=== PATIENT | female | born 1945 | race Caucasian/White ===

== ENCOUNTER 2025-01-29 13:05 | Emergency (ER) | payer MEDICARE, OTHER, SELFPAY ==
[2025-01-29] VITALS (24 sets, daily range): BP systolic 89–115; BP diastolic 42–74; PULSE 63–83; TEMP 37.2; O2SAT 98–100; BMI 20.5
--- NOTE | 2025-01-29 13:17 | ECG_ITS ---
[facility] Test Date: 2025-01-29 Pat Name: KAROLYN RAZA Department: Room: - Gender: Female Patient Transport Officer: : 1945 Requested By: [id number] Order Number: [id number] Reading MD: JACOB ESQUEDA M.D. Measurements Intervals [place] Rate: 64 P: 70 NM: 172 QRS: 25 QRSD: 88 T: -63 QT: 400 QTc: 409 Interpretive Statements 1100 Sinus rhythm 4564 Twave abnormality, possible lateral ischemia 4664 Twave abnormality, possible inferior ischemia 9150 abnormal ECG No previous ECG available for comparison Electronically Signed On 01-29-2025 17:51:02 EDT by JACOB ESQUEDA M.D.
[2025-01-29 13:40] LABS: Hematocrit 33.2 % (36.0-48.0); Hemoglobin 10.9 g/dL (12.0-16.0); Mean Corpuscular HGB Conc 32.8 g/dL (29.9-35.2); Mean Corpuscular Hemoglobin 28.7 pg (26.7-34.0); Mean Corpuscular Volume 87.4 fL (81.0-99.0); Mean Platelet Volume 10.4 fL (9.5-13.5); Platelet Count 135 10^3/uL (150-450); Red Cell Distribution Width 13.7 % (11.0-15.0); White Blood Count 4.2 10^3/uL (4.0-11.0)
[2025-01-29 13:59] LABS: Anion Gap 15.7; BUN Creatinine Ratio 17.3; Chloride 102 mmol/L (98-107); Estimated GFR (African America >60 (>=60 mL/min/1.73m^2); Estimated GFR (Non-African Ame 55 (>=60 mL/min/1.73m^2); Glucose 118 mg/dL (74-106); Potassium 3.7 mmol/L (3.5-5.1); Sodium 137 mmol/L (136-145)
[2025-01-29 14:00] LABS: Alanine Aminotransferase 17 U/L (14-59); Albumin Globulin Ratio 0.9; Albumin Level 3.1 g/dL (3.4-5.0); Alkaline Phosphatase 47 U/L (46-116); Aspartate Amino Transferase 29 U/L (15-37); Bilirubin Total 0.3 mg/dL (0.2-1.0); Calcium 8.4 mg/dL (8.5-10.1); Globulin 3.6 g/dL; Total Protein 6.7 g/dL (6.4-8.2)
[2025-01-29 14:01] LABS: Magnesium 1.9 mg/dL (1.8-2.4)
[2025-01-29 14:03] LABS: Lymphocytes Absolute Manual 0.42 10^3/uL (1.20-3.80); Monocytes Absolute Manual 0.29 10^3/uL (0.30-0.80); Segmented Neut Absolute Manual 3.48 10^3/uL (1.4-6.5)
[2025-01-29] MEDS: 0.9 % SODIUM CHLORIDE 1,000 ML 1000 ML IV (14:11)
[2025-01-29 15:03] LABS: Lactate/Lactic Acid 1.8 mmol/L (0.4-2.0)
[2025-01-29 15:15] LABS: Troponin I High Sensitivity 7.5 pg/mL (4.0-51.3)
--- NOTE | 2025-01-29 15:55 | ED.GENADUL1 ---
HPI HPI - General Adult General Chief complaint: Weakness Stated complaint: LOW BLOOD PRESSURE Time Seen by Provider: 01/29/25 13:17 Source: patient Mode of arrival: ambulance History of Present Illness HPI narrative: The patient is a 79-year-old female is coming to us by the EMS after she was having a bowel movement today and she feels like she is going to pass out, the patient was found to be hypotensive by the EMS upon arrival she was provided IV fluid after which she was feeling better. The patient apparently has been constipated for the last 3 days and took some laxative when she was trying to have a bowel movement this happened. The patient also has been having cough with no difficulty breathing Related Data Previous Rx's ?Medication ?Instructions ?Recorded bisacodyl 5 mg tablet,delayed 5 mg PO DAILY PRN constipation #10 01/29/25 release (Dulcolax (bisacodyl)) tabs Allergies Allergy/AdvReac Type Severity Reaction Status Date / Time No Known Drug Allergies Allergy Verified 01/29/25 13:09 Review of Systems ROS Status of ROS 10 or more systems reviewed and unremarkable except as noted in history and below [facility] Medical History (Updated 01/29/25 @ 15:57 by Linda Mena MD) Stroke ?I63.9 - Cerebral infarction, unspecified (ICD-10) Social History Little interest or pleasure in doing things: not at all Feeling down, depressed, or hopeless: not at all Exam Narrative Exam Narrative: Nurses notes and vital signs reviewed and patient is not hypoxic. General: Well-appearing and in no apparent distress. Skin: Warm, dry, no pallor noted. No rash. Head: Normocephalic, atraumatic. Neck: Supple, non-tender. Eye: Pupils are equal, round and EOMI. No scleral icterus. Ears, Nose, Mouth, and Throat: TM are clear, no nasal mucosal hypertrophy. Oral mucosa is dry , no posterior oropharynx erythema, uvula is mid-line Cardiovascular: Regular Rate and Rhythm without murmur, gallop or rub. Respiratory: No accessory muscle use or respiratory distress. Lungs are clear to auscultation, no wheezing, rales or rhonchi Chest Wall: no tenderness Back: No midline thoracic or lumbar vertebral tenderness. No CVA tenderness Musculoskeletal: normal ROM, no calf or popliteal tenderness, no lower extremity edema/swelling GI: Abdomen is soft, non-distended. Normal bowel sounds. No masses appreciated. No tenderness to palpation. No rebound, guarding, or rigidity noted. Neurological: A&O x4. No cranial nerve dysfunction observed. No truncal ataxia. Moves all extremities. Sensation intact. Psychiatric: Cooperative and interactive. Normal mood and affect. Constitutional Vital Signs, click to edit/add: Last Vital Signs Temp 98.9 F 01/29/25 13:12 Pulse 72 01/29/25 16:00 Resp 19 01/29/25 16:00 BP 110/63 01/29/25 15:52 Pulse Ox 99 01/29/25 15:52 O2 Del Method Room Air 01/29/25 13:11 Course Vital Signs Vital signs: Vital Signs Pulse Rate 68 01/29/25 13:06 Respiratory Rate 22 H 01/29/25 13:06 Blood Pressure 99/46 L 01/29/25 13:06 Pulse Oximetry 100 01/29/25 13:06 Temperature 98.9 F 01/29/25 13:12 Pulse Rate 72 01/29/25 16:00 Respiratory Rate 19 01/29/25 16:00 Blood Pressure 110/63 01/29/25 15:52 Pulse Oximetry 99 01/29/25 15:52 Oxygen Delivery Method Room Air 01/29/25 13:11 Medical Decision Making [facility] Narrative Medical decision making narrative: The patient EKG showing sinus rhythm with a heart rate of [address] elevation or depression The patient troponin repeated twice was negative Chest x-ray showed no acute pathology The patient CBC and chemistry showed no acute significant pathology as well The patient was discharged with instruction of hydration, she was able to ambulate in the ER with no difficulty or symptoms, I did provide her with Dulcolax for constipation Patient instructed about the importance of hydration and follow-up with her primary care doctor for further evaluation The patient is to follow up with primary care physician in next 2-3 days or to return to the emergency department should any of the signs or symptoms worsen or new symptoms develop. The patient agrees with the following Diagnosis and Treatment plan and the patient will be discharged home. Lab Data Labs: Lab Results 01/29/25 01/29/25 Range/Units 13:35 14:50 WBC 4.2 (4.0-11.0) 10^3/uL RBC 3.80 L (4.20-5.40) 10^6/uL Hgb 10.9 L (12.0-16.0) g/dL Hct 33.2 L (36.0-48.0) % MCV 87.4 (81.0-99.0) fL MCH 28.7 (26.7-34.0) pg MCHC 32.8 (29.9-35.2) g/dL RDW 13.7 (11.0-15.0) % Plt Count 135 L (150-450) 10^3/uL MPV 10.4 (9.5-13.5) fL Seg Neuts % (Manual) 83.0 H (43.0-75.0) Lymphocytes % (Manual) 10.0 L (20.5-60.0) % Monocytes % (Manual) 7.0 (1.7-12.0) % Eosinophils % (Manual) 0.0 L (0.9-7.0) % Basophils % (Manual) 0.0 L (0.2-2.0) % Neutrophils # (Manual) 3.48 (1.4-6.5) 10^3/uL Lymphocytes # (Manual) 0.42 L (1.20-3.80) 10^3/uL Monocytes # (Manual) 0.29 L (0.30-0.80) 10^3/uL Eosinophils # (Manual) 0.00 (0.00-0.70) 10^3/uL Basophils # (Manual) 0.00 (0.00-0.10) 10^3/uL Sodium 137 (136-145) mmol/L Potassium 3.7 (3.5-5.1) mmol/L Chloride 102 (98-107) mmol/L Carbon Dioxide 23.0 (21.0-32.0) mmol/L Anion Gap 15.7 BUN 17.0 (7.0-18.0) mg/dL Creatinine 0.98 (0.55-1.02) mg/dL Est GFR ( Amer) >60 (>=60 mL/min/1.73m^2) Est GFR (Non-Af Amer) 55 L (>=60 mL/min/1.73m^2) BUN/Creatinine Ratio 17.3 Glucose 118 H (74-106) mg/dL Lactate 1.8 (0.4-2.0) mmol/L Calcium 8.4 L (8.5-10.1) mg/dL Magnesium 1.9 (1.8-2.4) mg/dL Total Bilirubin 0.3 (0.2-1.0) mg/dL AST 29 (15-37) U/L ALT 17 (14-59) U/L Alkaline Phosphatase 47 (46-116) U/L Troponin I High Sens 7.0 7.5 (4.0-51.3) pg/mL Total Protein 6.7 (6.4-8.2) g/dL Albumin 3.1 L (3.4-5.0) g/dL Globulin 3.6 g/dL Albumin/Globulin Ratio 0.9 Discharge Plan Discharge Chief Complaint: Weakness Clinical Impression: Vaso vagal episode Patient Disposition: Home, Self-Care Time of Disposition Decision: 15:57 Condition: Good Prescriptions / Home Meds: New bisacodyl [Dulcolax (bisacodyl)] 5 mg tablet,delayed release (DR/EC) 5 mg PO DAILY PRN (Reason: constipation) Qty: 10 0RF Print Language: Luxembourgish Instructions: Syncope in Older Adults (ED) Referrals: Alfonzo Sherman [Primary Care Provider] - 1 week Discharge Date/Time: 01/29/25 16:15
== END 2025-01-29 16:15 | disposition home or self-care (01) ==
PROVIDERS: Emergency Provider Emergency Medicine; PCP Family Medicine
DX: R55 Syncope and collapse (principal)
CPT/HCPCS: 36415; 71045; 80053; 83605; 83735; 84484; 85007; 85027; 93005; 96360; 99285

== ENCOUNTER 2025-02-21 11:19 | Emergency (ER) | payer MEDICARE, OTHER, SELFPAY ==
--- OUTSIDE RECORDS SUMMARY | 2025-02-18 10:04 | XMS_ITS ---
Author Name Auto Generated Organization [facility] Care Team Providers Care Communications Coordinator Name Role Phone ZA, EHAD Admitting Unavailable ZA, EHAD Attending Unavailable GRISELDA PAUL Referring Unavailable Griselda Benson Admitting Unavailable Griselda Benson Attending Unavailable NON STAFF Primary Care Unavailable Mili Somers Attending Unavailable Mili Somers Admitting Unavailable MD Bobby Cho Consulting Unavailable Mili Somers Referring Unavailable Bobby Cho Consulting Unavailable Bobby Cho Consulting Unavailable Troy Moctezuma Attending Unavailable JANETT SHERMAN Referring Unavailable MD Bobby Cho Admitting Unavailable Mili Somers Attending Unavailable Mili Somers Attending Unavailable Mili Somers Admitting Unavailable NONE, XXXX Referring Unavailable PROVIDER, UNKNOWN Attending Unavailable PROVIDER, UNKNOWN Admitting Unavailable PROVIDER, UNKNOWN Admitting Unavailable PROVIDER, UNKNOWN Attending Unavailable PROVIDER, UNKNOWN Attending Unavailable PROVIDER, UNKNOWN Admitting Unavailable JANETT SHERMAN Attending Unavailable GORDONGABRIELA Mcdonough Miko Attending Unavailable JANETT SHERMAN Attending Unavailable PROBLEMS DATE TYPE CONDITION / CODE ATTENDING STATUS [facility] 11/13/2024 Unknown 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 Show up: 02/16/2025 09:41:00 EDT Subject: Echo unread DOS 02/08/2025 Reminder Message Please Remember to:_ PATIENT RELATED REMINDER:_ ( ) Call Patient ( ) Ask Patient to ( ) Call Relative ( ) Schedule Patient ( ) Follow up on Results ( x ) Other: PROVIDER RELATED REMINDER:_ ( ) Chargeback Specialist ( ) Call Pharmacy ( ) Call Lab ( ) Other: Special Instructions:_Please read echo DOS 02/08/25. It appears you started reading this but left it unsigned Comments:_ From: Bobby Cho MD To: - Clinical; Cc: Mili Somers PA-C; Joe Copeland; Sent: 02/17/2025 16:58:38 EDT Show up: 02/17/2025 16:57:00 EDT Subject: RE: Echo unread DOS 02/08/2025 Completed, it got sent to my personal basket and off the reviewer list so I did not see it. Dr Marquis BUENO TRANSTHORACIC COMPLETE Observed: 1:14 PM Status: F Source: [facility] Echocardiology Procedure Exam Date/Time Accession # Ordering Dr. Bueno Transthoracic 02/08/2025 14:35 EDT [id number] Mili Somers PA-C Complete CPT code 46737 [id number] Reason for Exam (Echo Transthoracic Complete) Congestive Heart Failure;I50.22 Report [facility] [address] [place] [address] Adult Echocardiogram Report Name: KAROLYN MULLEN Study Date: 02/08/2025 01:16 PM BP: 144/71 mmHg Patient Location: [facility] Ambulatory(s) [facility] [place] HR: 75 : 1945 Gender: Female Height: 65 in Age: 79 yrs Ethnicity: [facility] Weight: 125 lb Reason For Study: Congestive Heart Failure;I50.22 BSA: 1.6 m2 History: HTN,Diabetes,CAD,Murmur,CHF,,Cardiomyopathy Ordering Physician: YONIS^MILI^Jem Referring Physician: Mili Somers Performed By: Codi Zimmerman, [facility] Interpretation Summary There is Trace mitral regurgitation. There is normal left ventricular wall thickness. Ejection Fraction = 45-50%. There is mild global hypokinesis of the left ventricle. Grade I diastolic dysfunction, (abnormal relaxation pattern). The left atrium is mildly dilated. Moderate valvular aortic stenosis. Procedure A complete two-dimensional transthoracic echocardiogram was performed (2D, M- mode, spectral and color flow Doppler). Study quality is good. Left Ventricle The left ventricle is normal in size. There is normal left ventricular wall thickness. Ejection Fraction = 45-50%. There is mild global hypokinesis of the left ventricle. Grade I diastolic dysfunction, (abnormal relaxation pattern). Echocardiology Report Left Atrium The left atrium is mildly dilated. Right Atrium Right atrial size is normal. Right Ventricle The right ventricular systolic function is normal. The right ventricle is normal size. The right ventricular wall motion is normal. Aortic Valve The aortic valve is trileaflet. Trace aortic regurgitation. Moderate valvular aortic stenosis. Mitral Valve The mitral valve is normal in structure and function. Moderate mitral annular calcification. There is Trace mitral regurgitation. No mitral valve stenosis. Tricuspid Valve Structurally normal tricuspid valve. Right ventricular systolic pressure is normal. There is trace tricuspid regurgitation. Pulmonic Valve Trace pulmonic valvular regurgitation. Arteries The aortic root is normal in size. Normal ascending aorta. Pulmonary artery diameter is normal. Venous The inferior vena cava is normal in size, and collapses normally with respiration. Effusion There is a small pericardial effusion. There are no echo/Doppler findings suggestive of cardiac tamponade. MMode/2D Measurements & Calculations RVDd: 2.8 cm LVIDd: 3.5 cm FS: 48.1 % Ao root diam: 2.9 cm IVSd: 1.0 cm LVIDs: 1.8 cm EDV(Teich): 50.2 ml Ao root area: 6.7 cm2 LVPWd: 1.1 cm ESV(Teich): 9.8 ml LA dimension: 2.9 cm EF(Teich): 80.5 % LVOT diam: 2.0 cm LVLd ap4: 7.5 cm EDV(MOD-sp2): 56.9 ml SV(MOD-sp4): 37.2 ml LVOT area: 3.2 cm2 EDV(MOD-sp4): 67.3 ml ESV(MOD-sp2): 19.2 ml LVLs ap4: 7.0 cm EF(MOD-sp2): 66.3 % ESV(MOD-sp4): 30.1 ml EF(MOD-sp4): 55.3 % TAPSE: 2.4 cm IVC Diam: 1.7 cm RVIDd/LVIDd: 0.80 EF (MOD-bp): 60.9 % LA Vol Index: 19.8 ml/m2 Echocardiology Report Doppler Measurements & Calculations MV E max evans: 80.8 cm/sec MV dec time: 0.26 sec Ao V2 max: 310.0 cm/sec LV V1 max P.7 mmHg MV A max evans: 127.0 cm/sec Ao max P.4 mmHg LV V1 mean P.0 mmHg MV E/A: 0.64 Ao V2 mean: 223.0 cm/sec LV V1 max: 96.7 cm/sec Lat Peak E' Evans: 5.7 cm/sec Ao mean P.0 mmHg LV V1 mean: 63.0 cm/sec E/E' Lat: 14.3 Ao V2 VTI: 64.5 cm LV V1 VTI: 19.1 cm Med Peak E' Evans: 5.2 cm/sec E/E' Med: 15.5 JANINA(I,D): 0.96 cm2 JANNIA(V,D): 1.0 cm2 SV(LVOT): 62.0 ml TR max evans: 265.4 cm/sec RAP systole: 3.0 mmHg AV VR: 0.31 TR max P.2 mmHg JANINA(VTI)/BSA_phl: 0.57 RVSP(TR): 31.2 mmHg FINAL REPORT Dictated: 02/08/2025 1:16 pm Bobby Cho MD Signed (Electronic Signature): 02/17/2025 4:57 pm Signed by: Bobby Cho MD Transcribed by: [facility] Technologist: HEART AND VASCULAR OFFICE/CLINIC NOTE Observed: 01/18/2025 3:28 PM Status: F Source: [facility] Heart and Vascular Office/Cl inic Note Chief Complaint 6 week follow up History of Present Illness Patient is a 79-year-old female with a past medical history of CAD with prior AR, chronic systolic heart failure and also has a history of hypertension. Patient comes in for 6-week follow-up today. Patient comes in with her 2 nieces that the whole provide side of the history. Reviewed prior notes and imaging from previous neon sign worker. At last visit, I saw patient at which time we had her continue with current medications and I obtained records from prior neon sign worker. Obtain records from neon sign worker in [place], Dr. De Anda: Patient last saw their office in 03/2024. 1. Coronary artery disease, history of AR and subtotal occlusion of proximal RCA with residual moderate disease from heart cath in January 2021. Viability study demonstrated inferior fixed defect. 2. Ischemic cardiomyopathy, improved EF of 45% from 05/2021. Recovered EF of 50- 55% on echo in 06/2022. In 01/2021, patient was down to 20-25%. Started on Entresto and carvedilol. 3. Patient has valvular disease-mild MR, mild , trace aortic regurgitation. Patient reports that she has been doing pretty good overall since last visit. She reports that she has had a little bit of left-sided chest discomfort on occasion. She states that this pain usually comes on when she gets anxious which does happen fairly frequently for patient. She states that it used to radiate to her belly and then up into her throat, but now usually just stays on her left side. She states that it usually resolves on its own after a few minutes. Patient does not have any associated shortness of breath or other symptoms with this pain other than anxiety/stress. Patient is compliant with all medications for CHF including Entresto 24-26 mg twice daily, carvedilol 3.125 mg twice daily. She is taking and tolerating both medications well. She is having issues with getting Entresto covered by insurance they are working to get patient assistance on medication. Informed her that we do not want her medication if she does get close to running low, we can send in a substitute for it until the patient assistance is approved. Patient and nieces voiced understanding to this information. Patient has well-controlled blood pressure in the office today. It is better compared to last visit. Patient is only taking due to above listed medications, blood pressure. Patient reports that her blood pressure is usually pretty well- controlled at this check. Patient denies shortness of breath, heart palpitations, dizziness/lightheadedness, and swelling in lower legs. REVIEWED PRIOR NOTE FROM 12/09/2024: Patient comes in with her 2 nieces that the whole provide side of the history. She has moved to this area from [place], [place] after in 01/2024. She recently saw a new PCP, Dr. Sherman, who referred her to our office for further evaluation. Patient is not a great historian, but was able to elicit some history from her. Patient' nieces' assisted with this information from his what they know, but were not down in [place] with patient. She has a history of chronic systolic and was in the hospital 5-6 years ago when she was diagnosed with CHF. Patient reports that she was wearing a LifeVest for a period of time, but she started getting better and was able to come off the LifeVest. She has been maintained on carvedilol and Entresto since that time and has evidently maintained a good EF since that period of time and she has continued to follow with cardiology and they have not made any further changes to her medications. She was seeing a Dr. De Anda in [place] and she brought one of his cards with her that we will try to get records from. Patient reports that she does not ever recall having a heart cath in the past, even when her EF was declined. Patient has elevated blood pressure in the office today. she states that she was a little bit worked up as the neon sign worker got called away to a [place] and she did not think she was going to be able to be seen today. She states that she had a blood pressure taken this morning and it was very well-controlled. Patient reports that her blood pressure is usually well-controlled and she thinks that it was anxiety that causes her to be high today patient reports that she is feeling well overall and does not have any significant cardiac complaints. She states that she is fairly active throughout the day and had just sitting around. She does bowl once a week and does well with that. Patient denies any significant chest pain and states the only time she has felt some chest discomfort she believes is from gas buildup from her stomach. She does not have any swelling of her lower extremities and no significant issues with shortness of breath with exertion. Patient has been doing better since she moved to [place] where she is not doing Meez, she likes the companionship of her nieces and appreciates them. Patient denies chest pain, shortness of breath, heart palpitations, dizziness/lightheadedness, and swelling in lower legs. Review of Systems ROS - Provider Constitutional: no fever, no chills, no sweats, no weakness Respiratory: no shortness of breath, no cough Cardiovascular: no chest pain Neuro: no dizziness. no loss of consciousness Physical Exam Vitals & Measurements HR: 83(Peripheral) RR: 14 BP: 135/65 SpO2: 99% HT: 165 cm HT: 65 in WT: 56.8 kg WT: 125.222 lb BMI: 20.86 General: alert, no acute distress Cardiovascular: regular rate and rhythm, Harsh Crescendo-decrescendo murmur heard best at the right sternal border normal peripheral perfusion Respiratory: Lungs CTAB, respirations non labored Extremities: no edema left lower extremity. no edema right lower extremity Neurological: oriented x 4, LOC appropriate for age, speech normal Skin: Warm, dry, intact- no rash or concerning lesions Cardiac Diagnostics Assessment/Plan 1. Chronic systolic heart failure (I50.22: Chronic systolic (congestive) heart failure) Patient has history of chronic systolic heart failure. At one point, patient had a LifeVest. She then had improved EF and not had a LifeVest for quite some time. Patient is currently taking carvedilol 3.125 mg twice daily and Entresto 24-26 mg twice daily to help with CHF. Does not sound like patient has any significant symptoms of CHF at this time and has no swelling lately. Most recent echo from 03/2022 showed EF of 50-55% based on prior records. He will repeat an echo as it has been 2.5 years since her last echo to ensure it is still pumping good. Patient also mentions she is having some left-sided chest discomfort does not sound cardiac related, sounds more like anxiety. But will keep this in mind when we get echo. Ordered: Echo Transthoracic Complete 2. Hypertension (I10: Essential (primary) hypertension) Patient blood pressure at goal today in the office. Patient reports that her blood pressure is not usually very elevated. Patient is currently taking carvedilol 3.125 mg twice daily and Entresto 24-26 mg twice daily that would affect her blood pressure. Continue with current medications. Follow-up with me in 3 months or sooner if needed Portions of this record may have been created with voice recognition artificial intelligence software, specifically [employer], [employer] and or [employer]. Substitutions may have occurred due to the inherent limitations of voice recognition and artificial intelligence software. Follow-up No qualifying data available Problem List/Past Medical History Ongoing No qualifying data Historical No qualifying data Procedure/Surgical History Appendectomy, Carpal tunnel, Knee. Medications alprazolam 0.5 mg Tab, 0.5 mg= 1 tab(s), Oral, Daily, PRN aspirin 81 mg Oral EC Tab, 81 mg= 1 tab(s), Oral, Daily busPIRone 5 mg Tab, 5 mg= 1 tab(s), Oral, BID carvedilol 3.125 mg Tab, 3.125 mg= 1 tab(s), Oral, BID, 3 refills Entresto 24 mg-26 mg oral tablet, 1 tab(s), Oral, BID, 3 refills Entresto 24 mg-26 mg oral tablet, 1 tab(s), Oral, BID ezetimibe 10 mg Tab, 10 mg= 1 tab(s), Oral, Daily famotidine 20 mg Tab, 20 mg= 1 tab(s), Oral, Daily levothyroxine 88 mcg (0.088 mg) Tab, 88 mcg= 1 tab(s), Oral, Daily omeprazole 40 mg Cap-DR, 40 mg= 1 cap(s), Oral, Daily Potassium Chloride (Eqv-K-Tab) 10 mEq oral tablet, extended release, 10 mEq= 1 tab(s), Oral, Daily Allergies Crestor (Rash) hydroCHLOROthiazide (Rash) sulfa drugs (Rash) traMADol (Rash) Social History Tobacco - Denies Tobacco Use, 12/09/2024 Never (less than 100 in lifetime) Tobacco Use:., 01/18/2025 Never (less than 100 in lifetime) Tobacco Use:. Never Smokeless Tobacco Use:., 12/09/2024 Family History Primary malignant neoplasm of colon: Mother. Result Comment: Electronical ly Signed By: Yonis MCKEON, Mili Parish\.br\Date and Time Signed: 01/19/25 16:32 EDT HEART AND VASCULAR OFFICE/CLINIC NOTE Observed: 12/09/2024 4:35 PM Status: C Source: [facility] Heart and Vascular Office/ inic Note Chief Complaint New Patient History of Present Illness Patient is a 79-year-old female who comes to the clinic as a new patient today. She comes to establish care for chronic systolic heart failure and also has a history of hypertension. From what I can elicit for patient, does not have any history of CAD. Patient comes in with her 2 nieces that the whole provide side of the history. She has moved to this area from [place], [place] after in 01/2024. She recently saw a new PCP, Dr. Sherman, who referred her to our office for further evaluation. Patient is not a great historian, but was able to elicit some history from her. Patient' nieces' assisted with this information from his what they know, but were not down in [place] with patient. She has a history of chronic systolic and was in the hospital 5-6 years ago when she was diagnosed with CHF. Patient reports that she was wearing a LifeVest for a period of time, but she started getting better and was able to come off the LifeVest. She has been maintained on carvedilol and Entresto since that time and has evidently maintained a good EF since that period of time and she has continued to follow with cardiology and they have not made any further changes to her medications. She was seeing a Dr. De Anda in [place] and she brought one of his cards with her that we will try to get records from. Patient reports that she does not ever recall having a heart cath in the past, even when her EF was declined. Patient has elevated blood pressure in the office today. she states that she was a little bit worked up as the neon sign worker got called away to a [place] and she did not think she was going to be able to be seen today. She states that she had a blood pressure taken this morning and it was very well-controlled. Patient reports that her blood pressure is usually well-controlled and she thinks that it was anxiety that causes her to be high today patient reports that she is feeling well overall and does not have any significant cardiac complaints. She states that she is fairly active throughout the day and had just sitting around. She does bowl once a week and does well with that. Patient denies any significant chest pain and states the only time she has felt some chest discomfort she believes is from gas buildup from her stomach. She does not have any swelling of her lower extremities and no significant issues with shortness of breath with exertion. Patient has been doing better since she moved to [place] where she is not doing Meez, she likes the companionship of her nieces and appreciates them. Patient denies chest pain, shortness of breath, heart palpitations, dizziness/lightheadedness, and swelling in lower legs. Review of Systems PHQ Score Initial Depression Screen Score: 0 SCORE ROS - Provider Constitutional: no fever, no chills, no sweats, no weakness Respiratory: no shortness of breath, no cough Cardiovascular: no chest pain Neuro: no dizziness. no loss of consciousness Physical Exam Vitals & Measurements HR: 78(Peripheral) RR: 18 BP: 160/82 SpO2: 99% HT: 65 in HT: 165 cm WT: 54.8 kg WT: 120.813 lb BMI: 20.13 General: alert, no acute distress Cardiovascular: regular rate and rhythm, no murmur normal peripheral perfusion Respiratory: Lungs CTAB, respirations non labored Extremities: no edema left lower extremity. no edema right lower extremity Neurological: oriented x 4, LOC appropriate for age, speech normal Skin: Warm, dry, intact- no rash or concerning lesions Cardiac Diagnostics Assessment/Plan 1. Chronic systolic heart failure (I50.22: Chronic systolic (congestive) heart failure) Patient has history of chronic systolic heart failure. At 1 point, 5-6 years ago, patient had a LifeVest. She then had improved EF and not had a LifeVest for quite some time. Patient is currently taking carvedilol 3.125 mg twice daily and Entresto 24-26 mg twice daily to help with CHF. Does not sound like patient has any significant symptoms of CHF at this time and has no swelling on exam in the office. Patient appears to be stable but want to get prior records on her from her neon sign worker in [place]. May need further testing in the near future, but want to get records prior to ordering anything and patient is stable at this time from a CHF standpoint. 2. Hypertension (I10: Essential (primary) hypertension) Patient has elevated blood pressure in the office today, and is not at goal. Patient reports that her blood pressure is not usually very elevated. She states she had a blood pressure earlier today was very well-controlled. Patient is currently taking carvedilol 3.125 mg twice daily and Entresto 24-26 mg twice daily that would affect her blood pressure. Will have her continue with current medications and if her blood pressure remains elevated at next visit, likely will increase or add on another medication to help bring down blood pressure. Patient is in agreement with this plan Follow-up with me in 6 weeks Portions of this record may have been created with voice recognition artificial intelligence software, specifically [employer], [employer] and or [employer]. Substitutions may have occurred due to the inherent limitations of voice recognition and artificial intelligence software. Total time spent preparing for the encounter, evaluating and assessing the patient, documenting the visit, and ordering appropriate follow-up work was 40 minutes. Follow-up No qualifying data available Problem List/Past Medical History Ongoing No qualifying data Historical No qualifying data Procedure/Surgical History Appendectomy, Carpal tunnel, Knee. Medications alprazolam 0.5 mg Tab, 0.5 mg= 1 tab(s), Oral, Daily, PRN aspirin 81 mg Oral EC Tab, 81 mg= 1 tab(s), Oral, Daily busPIRone 5 mg Tab, 5 mg= 1 tab(s), Oral, BID carvedilol 6.25 mg Tab, 3.125 mg= 0.5 tab(s), Oral, BID Entresto 24 mg-26 mg oral tablet, 1 tab(s), Oral, BID ezetimibe 10 mg Tab, 10 mg= 1 tab(s), Oral, Daily famotidine 20 mg Tab, 20 mg= 1 tab(s), Oral, Daily levothyroxine 88 mcg (0.088 mg) Tab, 88 mcg= 1 tab(s), Oral, Daily omeprazole 40 mg Cap-DR, 40 mg= 1 cap(s), Oral, Daily Potassium Chloride (Eqv-K-Tab) 10 mEq oral tablet, extended release, 10 mEq= 1 tab(s), Oral, Daily Allergies Crestor (Rash) hydroCHLOROthiazide (Rash) sulfa drugs (Rash) traMADol (Rash) Social History Tobacco - Denies Tobacco Use, 12/09/2024 Never (less than 100 in lifetime) Tobacco Use:. Never Smokeless Tobacco Use:., 12/09/2024 Family History Primary malignant neoplasm of colon: Mother. Performed EKG in the office today which showed normal sinus rhythm with frequent PVCs. Obtain records from neon sign worker in [place], Dr. De Anda. Patient last saw their office in 03/2024. 1. Coronary artery disease, history of AR and subtotal occlusion of proximal RCA with residual moderate disease from heart cath in January 2021. Viability study demonstrated inferior fixed defect. 2. Ischemic cardiomyopathy, improved EF of 45% from 05/2021. Recovered EF of 50- 55% on echo in 06/2022. In 01/2021, patient was down to 20-25%. Started on Entresto and carvedilol. 3. Patient has valvular disease-mild MR, mild , trace aortic regurgitation. Result Comment: Electronical ly Signed By: Yonis MCKEON, Mili Parish\valdez\Date and Time Signed: 12/28/24 11:38 EDT POTASSIUM Collected: 11/15/2024 2:37 PM S tatus: COMPLETED Source: [facility] TYPE CODE TESTS RESULT OUT OF RANGE REFERENCE UNITS LAB K(LOINC) POTASSIUM 3.5 3.5-5.0 mmol/L Performed By: #### [id number] ## ## [facility] ([id number]) [address] [place] [address], [address] [place] [address] CBC AND AUTO DIFF Collected: 11/15/2024 8:08 AM Status: COMPLETED Source: [facility] TYPE CODE TESTS RESULT OUT OF RANGE REFERENCE UNITS LAB WBC(LOINC) WBC COUNT 6.1 4.0-11.0 X10E9/L LAB RBC(LOINC) RBC COUNT 3.81 3.80-5.20 X10E12/L LAB HGB(LOINC) HEMOGLOBIN 11.2 Low 11.7-15.5 g/dL LAB HCT(LOINC) HEMATOCRIT 33.0 Low 35-47 % LAB MCV(LOINC) MCV 87 80-100 fL LAB MCH(LOINC) MCH 29.3 27-34 pg LAB MCHC(LOINC) MCHC 33.8 32-36 g/dL LAB RDW(LOINC) RDW 15.0 11.5-15.0 % LAB PLTC(LOINC) PLATELET COUNT 162 150-450 X10E9 /L LAB MPV(LOINC) MPV 8.7 7-12 fL LAB NEUT(LOINC) % NEUTROPHILS 62.8 % LAB LYMP(LOINC) % LYMPHOCYTES 23.7 % LAB MONO(LOINC) % MONOCYTES 10.4 % LAB EOS(LOINC) % EOSINOPHILS 2.7 % LAB BASO(LOINC) % BASOPHILS 0.4 % LAB ANEUT(LOINC) ABSOLUTE NEUTROPHIL 3.8 1.5-6.6 X10E9/L LAB ALYMP(LOINC) ABSOLUTE LYMPHOCYTE 1.4 1.0-3.5 X10E9/L LAB AMONO(LOINC) ABSOLUTE MONOCYTE 0.6 0-0.9 X10E9/L LAB AEOS(LOINC) ABSOLUTE EOSINOPHIL 0.2 0.0-0.4 X10E9/L LAB ABASO(LOINC) ABSOLUTE BASOPHIL 0.0 0.0-0.2 X10E9/L Performed By: #### CBCA, BMP , PINR #### [facility] ([id number]) [address] [place] [address], [address] [address] BASIC METABOLIC PANL Collected: 11/15/2024 8:08 AM Status: COMPLETED Source: [facility] TYPE CODE TESTS RESULT OUT OF RANGE REFERENCE UNITS LAB NA(LOINC) SODIUM 143 134-146 mmol/L LAB K(LOINC) POTASSIUM 3.4 Low 3.5-5.0 mmol/L LAB CL(LOINC) CHLORIDE 108 98-109 mmol/L LAB CO2(LOINC) CARBON DIOXIDE 26 22-32 mmol/L LAB AGAP(LOINC) ANION GAP 9 5-15 mmol/L LAB BUN(LOINC) BLOOD UREA NITROGEN 11 5-27 mg/dL LAB CRET(LOINC) CREATININE 0.79 0.40-1.00 mg/dL Result Comment: METHOD TRACE ABLE TO IDMS STANDARD LAB GLU(LOINC) GLUCOSE 84 65-99 mg/dL LAB CA(LOINC) CALCIUM 9.1 8.5-10.5 mg/dL LAB EGFR(LOINC) eGFR (CKD-EPI) NON-RACE DEPENDENT 77 >59 ml/min/1. 73sq.m Result Comment: Reported eGFR is based on the CKD-EPI 2020 equation that does not use a race coefficient. Performed By: #### CBCA, BMP , PINR #### [facility] ([id number]) [address] [place] [address] PROTIME AND INR Collected: 11/15/2024 8:08 AM Status: COMPLETED Source: [facility] TYPE CODE TESTS RESULT OUT OF RANGE REFERENCE UNITS LAB PROX(LOINC) PROTIME 13.7 High 9.8-13.2 sec LAB INR(LOINC) INR 1.2 High 0.8-1.1 Performed By: #### CBCA, BMP , PINR #### [facility] ([id number]) [address] [place] [address], [address] [address] MR BRAIN WO CONT Observed: 11/14/2024 3:32 PM Status: COMPLETED Source: [facility] MR BRAIN WO CONT STUDY: MR BRAIN WO CONT INDICATION: Neuro deficit, acute, stroke suspected. TECHNIQUE: * Routine multiplanar multisequence MR imaging of the brain was performed without intravenous contrast. FINDINGS: No evidence of acute infarct, intracranial hemorrhage, mass effect, midline shift or extra-axial fluid. Moderate diffuse cortical and hippocampal atrophy. Ventricles, sulci and cisterns are otherwise unremarkable. Fawjbgeu-dl-uwopzz burden of T2/FLAIR hyperintense foci in the periventricular and subcortical white matter, may reflect chronic microangiopathy. Prominent perivascular spaces in the basal ganglia. Questionable tiny remote lacunar infarct in the left caudate head. Bilateral pseudophakia. Paranasal sinuses are clear. Trace right mastoid fluid. Major intracranial flow voids are unremarkable, limited by technique. IMPRESSION: * No evidence of acute intracranial abnormality, by MR. * Atrophic, chronic microvascular and possibly remote ischemic changes as described. Finalized by Bebeto Somers on 11/14/2024 4:06 PM POTASSIUM Collected: 11/14/2024 9:13 AM S tatus: COMPLETED Source: [facility] TYPE CODE TESTS RESULT OUT OF RANGE REFERENCE UNITS LAB K(LOINC) POTASSIUM 3.6 3.5-5.0 mmol/L Performed By: #### [id number] ## ## [facility] ([id number]) [address] [facility], [address] [place] [address] CBC AND AUTO DIFF Collected: 11/14/2024 3:40 AM Status: COMPLETED Source: [facility] TYPE CODE TESTS RESULT OUT OF RANGE REFERENCE UNITS LAB WBC(LOINC) WBC COUNT 6.6 4.0-11.0 X10E9/L LAB RBC(LOINC) RBC COUNT 3.75 Low 3.80-5.20 X10E12/L LAB HGB(LOINC) HEMOGLOBIN 11.0 Low 11.7-15.5 g/dL LAB HCT(LOINC) HEMATOCRIT 32.3 Low 35-47 % LAB MCV(LOINC) MCV 86 80-100 fL LAB MCH(LOINC) MCH 29.3 27-34 pg LAB MCHC(LOINC) MCHC 34.0 32-36 g/dL LAB RDW(LOINC) RDW 15.3 High 11.5-15.0 % LAB PLTC(LOINC) PLATELET COUNT 160 150-450 X10E9 /L LAB MPV(LOINC) MPV 8.6 7-12 fL LAB NEUT(LOINC) % NEUTROPHILS 64.1 % LAB LYMP(LOINC) % LYMPHOCYTES 24.3 % LAB MONO(LOINC) % MONOCYTES 9.4 % LAB EOS(LOINC) % EOSINOPHILS 1.6 % LAB BASO(LOINC) % BASOPHILS 0.6 % LAB ANEUT(LOINC) ABSOLUTE NEUTROPHIL 4.2 1.5-6.6 X10E9/L LAB ALYMP(LOINC) ABSOLUTE LYMPHOCYTE 1.6 1.0-3.5 X10E9/L LAB AMONO(LOINC) ABSOLUTE MONOCYTE 0.6 0-0.9 X10E9/L LAB AEOS(LOINC) ABSOLUTE EOSINOPHIL 0.1 0.0-0.4 X10E9/L LAB ABASO(LOINC) ABSOLUTE BASOPHIL 0.0 0.0-0.2 X10E9/L Performed By: #### CBCA, STEVAN , [id number], PINJa, HA1C #### [facility] ([id number]) [address] [facility], [address] [place] [address] BASIC METABOLIC PANL Collected: 11/14/2024 3:40 AM Status: COMPLETED Source: [facility] TYPE CODE TESTS RESULT OUT OF RANGE REFERENCE UNITS LAB NA(LOINC) SODIUM 141 134-146 mmol/L LAB K(LOINC) POTASSIUM 3.1 Low 3.5-5.0 mmol/L LAB CL(LOINC) CHLORIDE 107 98-109 mmol/L LAB CO2(LOINC) CARBON DIOXIDE 25 22-32 mmol/L LAB AGAP(LOINC) ANION GAP 9 5-15 mmol/L LAB BUN(LOINC) BLOOD UREA NITROGEN 9 5-27 mg/dL LAB CRET(LOINC) CREATININE 0.77 0.40-1.00 mg/dL Result Comment: METHOD TRACE ABLE TO IDMS STANDARD LAB GLU(LOINC) GLUCOSE 84 65-99 mg/dL LAB CA(LOINC) CALCIUM 8.6 8.5-10.5 mg/dL LAB EGFR(LOINC) eGFR (CKD-EPI) NON-RACE DEPENDENT 79 >59 ml/min/1. 73sq.m Result Comment: Reported eGFR is based on the CKD-EPI 2020 equation that does not use a race coefficient. Performed By: #### CBCA, BMP , 26997-3, PINR, HA1C #### [facility] ([id number]) [address] [place] [address] LIPID PROFILE Collected: 11/14/2024 3:40 AM Status: COMPLETED Source: [facility] TYPE CODE TESTS RESULT OUT OF RANGE REFERENCE UNITS LAB CHOL(LOINC) CHOLESTEROL 157 150-200 mg/dL LAB TRIG(LOINC) TRIGLYCERIDE 60 27-150 mg/dL LAB HDL(LOINC) HDL CHOLESTEROL 50 >39 mg/dL Result Comment: HDL <40 mg/dL - High Risk HDL > or = 40mg/dL- Desirable HDL >60 mg/dL - Negative Risk LAB VLDL(LOINC) VERY LOW LIPOPROTEIN 12 0-30 mg/dL LAB LDL(LOINC) LDL (CALC) 95 <130 mg/dL Result Comment: LDL <100 mg/dL - Desirable LDL >160 mg/dL - High Risk LAB CHDL(LOINC) CHOLESTEROL:HDL 3.1 1.0-5.0 Performed By: #### STEVAN OLIVAS , 03850-8, PINR, HA1C #### [facility] ([id number]) [address] [place] [address] PROTIME AND INR Collected: 11/14/2024 3:40 AM Status: COMPLETED Source: [facility] TYPE CODE TESTS RESULT OUT OF RANGE REFERENCE UNITS LAB PROX(LOINC) PROTIME 13.9 High 9.8-13.2 sec LAB INR(LOINC) INR 1.2 High 0.8-1.1 Performed By: #### BRENDON, STEVAN , 05466-4, PINR, HA1C #### [facility] ([id number]) [address] [place] [address] HGB A1C (GLYCO-HGB) Collected: 11/14/2024 3:40 AM Status: COMPLETED Source: [facility] TYPE CODE TESTS RESULT OUT OF RANGE REFERENCE UNITS LAB HBA1C(LOINC) HEMOGLOBIN A1C 5.9 High 4.4-5.6 % Result Comment: NOTE ADA Guidelines Result HgbA1c Normal : less than 5.7 % Prediabetes : 5.7 % to 6.4 % Diabetes : > 6.4 % Use with caution in patients with abnormal hemoglobin variants as the half-life of red blood cells and in vivo glycation rates are affected. LAB EAG(LOINC) AVERAGE GLUCOSE 123 mg/dL Performed By: #### CBCA, BMP , 56907-4, PINR, HA1C #### [facility] ([id number]) [facility], [address] [address] PROTIME AND INR Collected: 11/13/2024 10:15 PM Status: COMPLETED Source: [facility] TYPE CODE TESTS RESULT OUT OF RANGE REFERENCE UNITS LAB PROX(LOINC) PROTIME 13.9 High 9.8-13.2 sec LAB INR(LOINC) INR 1.2 High 0.8-1.1 Performed By: #### PINR #### [facility] ([id number]) [facility], [address] [place] [address] BEDSIDE GLUCOSE LAB Collected: 11/13/2024 5:39 PM Status: COMPLETED Source: [facility] TYPE CODE TESTS RESULT OUT OF RANGE REFERENCE UNITS LAB BEDG(LOINC) BEDSIDE GLUCOSE LAB 91 65-99 mg/dL CT ANGIO ABDOMEN PELVIS Observed: 2024 4:38 PM Status: COMPLETED Source: [facility] Main [address] [address] [address] Scan Report Signed Patient: Karolyn Mullen MR#: [id number] [birth year] : 1945 Acct:[id number] Age/Sex: 79 / F ADM Date: 11/13/24 Loc: ER Room: Type: [facility] ER Attending Dr: Copies to: Griselda Benson MD Ordering Provider: Griselda Benson MD Date of Service: 11/13/24 CT/CT angio abdomen pelvis: r/o dissection CTA Chest, abdomen and pelvis . CLINICAL DATA: Confusion, r/o dissection. TECHNIQUE: Intravenous contrast-enhanced CT angiography of the Chest/abdomen and pelvis was performed. Axial, sagittal, coronal and volume-rendered three-dimensional reconstructions were created and reviewed. This CT exam was performed using one or more of the following dose reduction techniques: Automated exposure control, adjustment of the mA and/or kV according to patient size, or use of iterative reconstruction technique. COMPARISON: None. FINDINGS: Vasculature: Moderate diffuse atherosclerotic disease. No aortic dissection or aneurysm identified. Ascending aorta 3.6 x 3.7 cm. Bovine arch.. Abdominal aorta patent. Mesenteric vessels are patent. Bilateral common, internal, and external iliac vessels are patent without significant narrowing or stenosis. Mediastinum: Triple vessel coronary disease. Trace pericardial fluid. No definite adenopathy. No central pulmonary emboli. Distal branches difficult To evaluate due to motion. Lungs: Multifocal predominantly right lung nodularity right lung nodule 6 mm in size. Right middle lobe and right middle lobe nodularity noted lesser extent. Parenchymal opacity right middle lobe posterior scarring were airspace disease. Left lung is grossly clear. Organs:Motion degradation. Diminished attenuation liver can be seen with fatty infiltration. Otherwise the liver, spleen, adrenal glands, and pancreas unremarkable. Motion through the kidneys. No definite focal renal abnormality identified.[ GI: Motion bowel loops. No definite bowel obstruction. No definite mural thickening.[ Pelvis:[Mild bladder distention. Uterus not visualized. No adnexal mass.] Peritoneum/Retroperitoneum:No free air. Trace right-sided free fluid. No bulky adenopathy.[ Abd wall/Bones:Degenerative changes and prior lower lumbar spine instumentation CT/CT angio abdomen pelvis IMPRESSION: Negative for pulmonary embolism or aortic dissection. No high-grade vascular narrowing. Scattered right lung pulmonary nodularity up to 6 mm in size. No prior comparisons available. Follow-up based on Fleischner criteria recommended. Motion degradation within the abdomen and pelvis without definite abnormality on the arterial phase images. Impression dictated by: Jemal Adrian M.D.11/13/2024 4:39 PM Dictation Location: [place] [address] Transcribed By: [facility] 11/13/24 1639 Dictated By: Jemal Adrian MD 11/13/24 1638 Signed By: <Electronically signed by Jemal Adrian MD in OV> 11/13/24 1639 ECG 12 LEAD ECG Observed: 11/13/2024 4:18 PM Status: COMPLETED Source: [place] [id number] Electrocardiograph Report Signed Patient: Karolyn Mullen MR#: [id number] [birth year] : 1945 Acct:[id number] Age/Sex: 79 / F ADM Date: 11/13/24 Loc: ER Room: Type: [facility] ER Attending Dr: Ordering Provider: Griselda Benson MD Date of Service: 11/13/24 ECG/ECG 12 lead ECG: Neuro Symptoms/Deficit Copies to: Test Reason : Blood Pressure : 161/89 mmHG Vent. Rate : 89 BPM Atrial Rate : 89 BPM P-R Int : 178 ms QRS Dur : 90 ms QT Int : 404 ms P-R-T Axes : 77 -9 56 degrees QTcB Int : 491 ms Sinus rhythm with frequent premature ventricular complexes Abnormal ECG No previous ECGs available Confirmed by Griselda Benson MD ([id number]) on 11/14/2024 12:03:10 AM Referred By: Electronically Signed By: Griselda Benson MD Transcribed By: MUS Signed By Griselda Benson MD 10/31 02/[address] ANGIO CHEST Observed: 11/13/2024 4:03 PM Status: COMPLETED Source: [place] [id number] CT Scan Report Signed Patient: Karolyn Mullen MR#: [id number] [birth year] : 1945 Acct:[id number] Age/Sex: 79 / F ADM Date: 11/13/24 Loc: ER Room: Type: [facility] ER Attending Dr: Copies to: Griselda Benson MD Ordering Provider: Griselda Benson MD Date of Service: 11/13/24 CT/CT angio chest: r/o dissection CTA Chest, abdomen and pelvis . CLINICAL DATA: Confusion, r/o dissection. TECHNIQUE: Intravenous contrast-enhanced CT angiography of the Chest/abdomen and pelvis was performed. Axial, sagittal, coronal and volume-rendered three-dimensional reconstructions were created and reviewed. This CT exam was performed using one or more of the following dose reduction techniques: Automated exposure control, adjustment of the mA and/or kV according to patient size, or use of iterative reconstruction technique. COMPARISON: None. FINDINGS: Vasculature: Moderate diffuse atherosclerotic disease. No aortic dissection or aneurysm identified. Ascending aorta 3.6 x 3.7 cm. Bovine arch.. Abdominal aorta patent. Mesenteric vessels are patent. Bilateral common, internal, and external iliac vessels are patent without significant narrowing or stenosis. Mediastinum: Triple vessel coronary disease. Trace pericardial fluid. No definite adenopathy. No central pulmonary emboli. Distal branches difficult To evaluate due to motion. Lungs: Multifocal predominantly right lung nodularity right lung nodule 6 mm in size. Right middle lobe and right middle lobe nodularity noted lesser extent. Parenchymal opacity right middle lobe posterior scarring were airspace disease. Left lung is grossly clear. Organs:Motion degradation. Diminished attenuation liver can be seen with fatty infiltration. Otherwise the liver, spleen, adrenal glands, and pancreas unremarkable. Motion through the kidneys. No definite focal renal abnormality identified.[ GI: Motion bowel loops. No definite bowel obstruction. No definite mural thickening.[ Pelvis:[Mild bladder distention. Uterus not visualized. No adnexal mass.] Peritoneum/Retroperitoneum:No free air. Trace right-sided free fluid. No bulky adenopathy.[ Abd wall/Bones:Degenerative changes and prior lower lumbar spine instumentation CT/CT angio chest IMPRESSION: Negative for pulmonary embolism or aortic dissection. No high-grade vascular narrowing. Scattered right lung pulmonary nodularity up to 6 mm in size. No prior comparisons available. Follow-up based on Fleischner criteria recommended. Motion degradation within the abdomen and pelvis without definite abnormality on the arterial phase images. Impression dictated by: Jemal Adrian M.D.11/13/2024 4:16 PM Dictation Location: [place] [address] Transcribed By: GERALDINE 11/13/24 1616 Dictated By: Jemal Adrian MD 11/13/24 1603 Signed By: <Electronically signed by Jemal Adrian MD in OV> 11/13/[address] ANGIO NECK Observed: 11/13/2024 3:55 PM Status: COMPLETED Source: [facility] Main [place] [address] [place], [place] [id number] CT Scan Report Signed Patient: Karolyn Mullen MR#: [id number] [birth year] : 1945 Acct:[id number] Age/Sex: 79 / F ADM Date: 11/13/24 Loc: ER Room: Type: [facility] ER Attending Dr: Copies to: Griselda Benson MD Ordering Provider: Girselda Benson MD Date of Service: 11/13/24 CT/CT angio neck: nih 6, sudden onset confusion, dysarthria, aphas ([id number]) CT/CT angio head: nih 6, sudden onset confusion, dysarthria, aphas CT angio head, CT angio neck 11/13/2024 3:21 PM SIGNS AND SYMPTOMS: nih 6, sudden onset confusion, dysarthria, aphas lkw 1200 TECHNIQUE: Multi-detector CT angiography axial slices of the head/neck were obtained during intravenous administration of IV contrast material. Sagittal, coronal, and 3-D reconstructions were performed and viewed on a separate workstation. CT was performed with one or more of the following dose reduction techniques: Automated exposure control, adjustment of the mA and/or kV according to patient size, or use of iterative reconstruction technique. Stenoses were measured using the NASCET criteria. COMPARISON: None. FINDINGS: CTA HEAD: The superior cerebellar arteries, posterior inferior cerebellar arteries, and the basilar artery are within normal limits. The posterior cerebral arteries are unremarkable. The intracranial segments of the internal carotid arteries are within normal limits. Hypoplastic right A1 segment. Otherwise the anterior and middle cerebral arteries are patent. Anterior communicating artery is patent. Posterior communicating arteries are present. The deep venous system and dural venous systems appear to be patent. CTA NECK: There is a bovine arch. The subclavian arteries are patent. The vertebral arteries arise from the subclavian arteries and are patent up to the skull base. The common and internal carotid arteries demonstrate mild to moderate predominantly calcific plaque without significant narrowing There are criteria. Visualized lung parenchyma is clear. Multilevel DISH involving the cervical spine.. The paraspinous soft tissues are within normal limits. CT/CT angio head IMPRESSION: Negative for hemodynamically significant stenosis or large vessel occlusion Impression dictated by: Jemal Adrian M.D.11/13/2024 4:03 PM Dictation Location: [facility] Transcribed By: [facility] 11/13/24 1603 Dictated By: Jemal Adrian MD 11/13/24 1555 Signed By: <Electronically signed by Jemal Adrian MD in OV> 11/13/[address] HEAD STROKE ALERT WO CON Observed: 11/13/2024 3:29 PM Status: COMPLETED Source: [facility] [place] [address] CT Scan Report Signed Patient: Karolyn Mullen MR#: [id number] [birth year] : 1945 Acct:[id number] Age/Sex: 79 / F ADM Date: 11/13/24 Loc: ER Room: Type: [facility] ER Attending Dr: Copies to: Griselda Benson MD Ordering Provider: Griselda Benson MD Date of Service: 11/13/24 CT/CT head stroke alert wo con: nih 6, sudden onset confusion, dysarthria, aphas CT BRAIN WITHOUT CONTRAST: CLINICAL HISTORY: Stroke alert, confusion COMPARISON: None TECHNIQUE: Contiguous axial unenhanced images were obtained through the brain. This CT exam was performed using one or more following dose reduction techniques: Automated exposure control, adjustment of the mA and/or kV according to patient size, or use of iterative reconstruction technique. FINDINGS: Central involutional changes. Moderate chronic small vessel ischemic disease. Scattered foci of chronic lacunar type strokes noted including both caudate heads/ caudate bodies. There are intracranial vascular locations. Visualized paranasal sinuses are clear. The surrounding soft tissues are normal. CT/CT head stroke alert wo con IMPRESSION: NO ACUTE INTRACRANIAL ABNORMALITY. 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 Discussed with Zenon Francois 15:35 11/13/2024 Impression dictated by: Jemal Adrian M.D.11/13/2024 3:35 PM Dictation Location: [place] [address] Transcribed By: [facility] 11/13/24 1535 Dictated By: Jemal Adrian MD 11/13/24 1529 Signed By: <Electronically signed by Jemal Adrian MD in OV> 11/13/24 1535 COMPLETE BLOOD COUNT AUTO DIFF Collected: 11/13/2024 3:18 PM Status: F Source: [facility] TYPE CODE TESTS RESULT OUT OF RANGE REFERENCE UNITS LAB WBC White Blood Count 6.8 Normal 3.8-11.6 10*3/uL LAB UNWBC Uncorrected WBC 6.8 Normal 3.8-11.6 10*3/uL LAB RBC Red Blood Count 4.48 Normal 3.60-5.00 10*6/u L LAB HGB Hemoglobin 13.0 Normal 11.8-15.4 g/dL LAB HCT Hematocrit 38.8 Normal 34.0-46.4 % LAB MCV Mean Corpuscular Volume 86.8 Normal 80-100 fL LAB MCH Mean Corpuscular Hemoglobin 28.9 Normal 24.7-34.3 pg LAB MCHC Mean Corpuscular HGB Conc 33.4 Normal 32.0-35.0 g/dL LAB RDW Red Cell Distribution Width 15.2 Normal 11.9-15.3 % LAB PLT Platelet Count 212 Normal 150-450 10*3/uL LAB MPV Mean Platelet Volume 8.5 Normal 6.3-10.7 fL LAB MDW Monocyte Distribution Width 20.37 High 0.00-20.00 % Result Comment: For adults i n ED, MDW > 20.0 may be associated with a higher risk of sepsis during the first 12 hrs of hospital admission LAB NE% Neutrophils % (Auto) 60.4 . % LAB LY% Lymphocytes % (Auto) 28.7 . % LAB MO% Monocytes % (Auto) 8.2 . % LAB EO% Eosinophils % (Auto) 1.8 . % LAB BA% Basophils % (Auto) 0.9 . % LAB NRBC% NRBC% 0.1 Normal 0-0.5 /100{WBC } LAB NE# Neutrophils # (Auto) 4.1 Normal 1.8-7.7 10*3/uL LAB LY# Lymphocytes # (Auto) 1.9 Normal 1.00-4.8 10*3/uL LAB MO# Monocytes # (Auto) 0.6 Normal 0.0-0.8 10*3/uL LAB EO# Eosinophils # (Auto) 0.1 Normal 0.0-0.45 10*3/uL LAB BA# Basophils # (Auto) 0.1 Normal 0.0-0.2 10*3/uL Result Comment: PERFORMED BY : [facility] [address] [place] [address] PATHOLOGIST [employer]ER HAN JERONIMO M.D. Performed By: #### PT, CK, C BC, HS TROP, PTT, CMP #### [facility] [address] COMPREHENSIVE METABOLIC PANEL Collected: 11/13/2024 3 :18 PM Status: F Source: [facility] TYPE CODE TESTS RESULT OUT OF RANGE REFERENCE UNITS LAB GLU Glucose 98 Normal 70-100 mg/dL Result Comment: Random Gluco se Reference Range is dependent on time and content of last meal. Glucose of more than 200 mg/dL in a nonstressed, ambulatory subject supports the diagnosis of Diabetes Mellitus. ADA recommended reference range LAB BUN Blood Urea Nitrogen 10 Normal 7-25 mg/d L LAB CREATT Creatinine 0.74 Normal 0.60-1.20 mg/dL LAB GFReNR Estimated GFR >60.0 mL/Min LAB NA Sodium 140 Normal 136-145 mmol/L LAB K Potassium 3.6 Normal 3.5-5.1 mmol/L LAB CL Chloride 108 High 98-107 mmol/L LAB CO2 Carbon Dioxide 20.9 Low 21.0-31.0 mmol/L LAB GAP Anion Gap 14.7 Normal 6.0-15.0 meq/L LAB CA Calcium 10.0 Normal 8.6-10.3 mg/dL LAB TP Total Protein 7.8 Normal 6.4-8.9 g/dL LAB ALB Albumin Level 4.3 Normal 3.5-5.7 g/dL LAB GLOB Globulin 3.5 g/dL LAB AGRATIO Albumin/Globulin Ratio 1.2 LAB BILIT Bilirubin,Total 0.6 Normal 0.3-1.0 mg/dL LAB AST Aspartate Amino Transferase 25 Normal 13-39 U/L LAB ALT Alanine Aminotransferase 13 Normal 7-52 U/L LAB ALP Alkaline Phosphatase 47 Normal 34-104 U/L LAB CRCLPHA Creatinine Clr C alc Pharmacy 58.46 Result Comment: PERFORMED BY : [place] [id number] PATHOLOGIST [employer] HAN JERONIMO M.D. Performed By: #### PT, CK, C BC, HS TROP, PTT, CMP #### [address] [address] [facility] CREATINE KINASE Collected: 11/13/2024 3:18 PM Status : F Source: [facility] TYPE CODE TESTS RESULT OUT OF RANGE REFERENCE UNITS LAB CK Creatine Kinase 72 Normal 30-223 U/L Performed By: #### PT, CK, C BC, HS TROP, PTT, CMP #### [place] [id number] [facility] TROPONIN I HIGH SENSITIVITY Collected: 11/13/2024 3:1 8 PM Status: F Source: [facility] TYPE CODE TESTS RESULT OUT OF RANGE REFERENCE UNITS LAB HS TROP Troponin I High Sensitivity 6 Normal 0-15 Result Comment: The Troponin units of report have been changed to meet the Chest Pain Accreditation requirement, element EC5.M1l2. Troponin units are changed from pg/ml to ng/L. Also, the decimal is removed and results are in whole numbers. PERFORMED BY: [place] [address] PATHOLOGIST S[employer] HAN JERONIMO M.D. Performed By: #### PT, CK, C BC, HS TROP, PTT, CMP #### [place] [id number] [facility] PROTHROMBIN TIME INR Collected: 11/13/2024 3:18 PM S tatus: F Source: [facility] TYPE CODE TESTS RESULT OUT OF RANGE REFERENCE UNITS LAB R PT Prothrombin Time 12.9 Normal 9.0-12.9 s Result Comment: A hematocrit value greater than 55% may lead to inaccurate results in coagulation testing. Patients having hematocrit values >55% require a special collection tube for coagulation studies. Please contact the laboratory at [phone] for redraw instructions. LAB INR INR 1.1 Result Comment: INR Therapeu tic Range A) Pre- and Peroperative OAT started two weeks before surgery. NOT HIP SURGERY: 1.5 - 2.5 HIP SURGERY: 2 - 3 B) Primary and secondary prevention of venous THROMBOSIS: 2 - 3 C) Active venous thrombosis, pulmonary embolism and prevention of recurrent venous thrombosis: 2 - 3 D) Prevention of arterial thromboembolism including patients with mechanical heart valves: 3 - 4.5 Performed By: #### PT, CK, C BC, HS TROP, PTT, CMP #### [facility] [address] [place] [id number] [facility] PARTIAL THROMBOPLASTIN TIME Collected: 11/13/2024 3:1 8 PM Status: F Source: [facility] TYPE CODE TESTS RESULT OUT OF RANGE REFERENCE UNITS LAB PTT Partial Thromboplastin Time 30.6 Normal 25.1-36.5 s Result Comment: A hematocrit value greater than 55% may lead to inaccurate results in coagulation testing. Patients having hematocrit values >55% require a special collection tube for coagulation studies. Please contact the laboratory at [phone] for redraw instructions. PERFORMED BY: [id number] PATHOLOGIST SMOKING PIPE LINER HAN JERONIMO M.D. Performed By: #### PT, CK, C BC, HS TROP, PTT, CMP #### [place] [id number] [facility] GLUCOSE POCT GLUCOMETERS Collected: 11/13/2024 3:05 P M Status: F Source: [facility] TYPE CODE TESTS RESULT OUT OF RANGE REFERENCE UNITS LAB GLUPOC Glucose Poc Glucometers 106 mg/dL Result Comment: Random Gluco se Reference Range is dependent on time and content of last meal. Glucose of more than 200 mg/dL in a nonstressed, ambulatory subject supports the diagnosis of Diabetes Mellitus. PERFORMED BY: [place] [id number] PATHOLOGIST SMOKING PIPE LINER HAN JERONIMO M.D. Performed By: #### GLULS ### # Point of Care testing , ALLERGIES DATE TYPE / CODE NAME / CODE REACTION SEVERITY SOURCE [id number](SNOME D CT) sulfa drugs [id number] [employer] [facility] /[id number](SNOME D CT) Crestor [id number] [facility] /[id number](SNOME D CT) traMADol [id number] [facility] /595600192(SNOME D CT) hydroCHLOROthiazide [id number] [facility] Drug Class/001073238(SN OMED CT) NO KNOWN ALLERGIES [facility] ENCOUNTERS ADMIT/DISCHARGE ACCOUNT NUMBER ADMITTING ENCOUNTER CLASS LOCATION SOURCE 02/18/2025/02/19/20 [id number] Ambulatory Building:NOM S [facility] EPIC 02/18/2025/02/19/20 [id number] Ambulatory Building:NOM S [facility] 02/16/2025 [id number] [facility]ulatory [facility] 02/08/2025/02/09/20 [id number] Mili Somers Ambulatory [facility]FT CAR [facility] 01/18/2025/01/19/20 [id number] Mili Somers Ambulatory [facility]FT[facility]Cardiolo gy ClinicRoom: CD:[id number] [facility] 12/09/2024/12/10/19 [id number] MD Bobby Cho Ambulatory [facility] ClinicRoom: CD:[id number] [facility] 11/30/2024 [id number] Ambulatory [facility] 11/25/2024/11/25/19 [id number] Ambulatory Building:NOM S [facility] EPIC 11/16/2024/11/16/19 [id number] Unknown [facility] 11/13/2024/11/15/19 [id number] SEDRICK MENDENHALL Inpatient Encounter Building:PTH _G9ACUTERoom : P801Osh: 01 [facility] 11/13/2024/11/13/19 [id number] [facility] 11/13/2024/11/16/19 [id number] Unknown [facility] 11/13/2024 [id number] Unknown Amb[facility] PAYERS ENCOUNTER GUARANTOR PAYER SUBSCRIBER SOURCE 02/18/2025 KAROLYN MULLENDOB: [address] [address]Hnk: (HP) Primary Insurance:MEDICAREPol icy Number: [id number] Date:2783-37-32Ieek Name:Medicare DONNA ENSIGNDOB: [id number] [address] [address] [facility] EPIC 02/18/2025 Secondary Insurance:TRANSAMERIC APolicy Number: [id number] Date:2024-09-30 KAROLYN JEROMEIGNDOB: [id number] [address] [address] [facility] EPIC 02/18/2025 KAROLYN IGNDOB: [address] [address]Qnz: (HP) Primary Insurance:MEDICAREPol icy Number: [id number] Date:1365-38-78Slbu Name:Medicare DONNA ENSIGNDOB: [id number] [address] [address] [facility] EPIC 02/18/2025 Secondary Insurance:TRANSAMERIC APolicy Number: [id number] Date:2024-09-30 KAROLYN IGNDOB: [id number] [address] [address] [facility] EPIC 02/16/2025 KAROLYN Ja ENSIGNDOB: [place] [address] ETel: ~([phone] (HP) Primary Insurance:MEDICAREPol icy Number: [id number] Date:8632-35-56[address] [address], [place] [address]MR: KAROLYN GEE [facility] 02/16/2025 Secondary Insurance:[facility] Insurance CompanyPolicy Number: [id number] 175Effective Date:7877-70-59[address] [place] [address]PK: KAROLYN GEE [facility] 02/08/2025 KAROLYN Peres ENSIGNDOB: [address] ETel: ~([phone] (HP) Primary Insurance:MEDICAREPol icy Number: [id number] Date:7330-14-60[address] [address], [place] [address]AY: KAROLYN GEE [facility] 02/08/2025 Secondary Insurance:[facility] Insurance CompanyPolicy Number: [id number] 175Effective Date:9173-13-42T[address] [place] [address]IZ: KAROLYN GEE [facility] 01/18/2025 KAROLYN Peres ENSIGNDOB: [id number] [facility] [address] ETel: ~([phone] (HP) Primary Insurance:MEDICAREPol icy Number: [id number] Date:1309-75-21EC [address] [address]AT[place], [place] [address]DC: KAROLYN GEE [facility] 01/18/2025 Secondary Insurance:[facility] Insurance CompanyPolicy Number: [id number] 175Effective Date:5325-45-49[address] [place] [address]KJ: KAROLYN GEE [facility] 12/09/2024 KAROLYN MULLENDOB: [id number] [place] [address] ETel: ~([phone] (HP) Primary Insurance:MEDICAREPol icy Number: [id number] Date:2049-79-32[address] [address], [place] [address]IR: KAROLYN GEE [facility] 12/09/2024 Secondary Insurance:[facility] Insurance CompanyPolicy Number: [id number] Date:6194-90-95[address] [address]JT: KAROLYN GEE [facility] 11/30/2024 KAROLYN ENSIGNDOB: [facility] 101Tel: (HP) Primary Insurance:MEDICAREPol icy Number: [id number] Date:8118-76-40[address] [address], [place] [address]MD: KAROLYN GEE [facility] 11/30/2024 Secondary Insurance:[facility] Insurance CompanyPolicy Number: [id number] Date:2011-12-30 KAROLYN GEE [facility] 11/25/2024 KAROLYN ENSIGNDOB: [address] [address]Cma: (HP) Primary Insurance:MEDICAREPol icy Number: [id number] Date:3668-45-32Vqlt Name:Medicare KAROLYN ENSIGNDOB: [id number] [address] [address] [facility] EPIC 11/25/2024 Secondary Insurance:TRANSAMERIC APolicy Number: [id number] Date:2024-09-30 KAROLYN ENSIGNDOB: [id number] [address] [facility] EPIC 11/13/2024 KAROLYN ENSIGNDOB: [address] [address]Uxz: ~([phone] (HP) Primary Insurance:MEDICARE PART APolicy Number: [id number] Date:2024-11-13 KAROLYN ENSIGNDOB: [id number] [address] [place] [address]Byr: () [facility]
[2025-02-21 11:25] VITALS: BP 137/70; PULSE 82; TEMP 36.9; O2SAT 99
[2025-02-21 11:26] VITALS: BP 137/70
[2025-02-21 11:27] VITALS: O2SAT 99
[2025-02-21 11:30] VITALS: PULSE 83; O2SAT 100
[2025-02-21 11:34] VITALS: BP 137/70; PULSE 76; O2SAT 100
--- NOTE | 2025-02-21 11:40 | ECG_ITS ---
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 Measurements Intervals [place] Rate: 75 P: 77 MO: 168 QRS: 40 QRSD: 88 T: -51 QT: 368 QTc: 397 Interpretive Statements 1100 Sinus rhythm 1570 with occasional ventricular premature complexes [address] depression [address] & Twave abnormality 9140 abnormal rhythm ECG Compared to ECG 01/29/2025 13:09:55 Ventricular premature complex(es) now present Electronically Signed On 02-21-2025 14:01:43 EDT by JACOB ESQUEDA M.D.
--- NOTE | 2025-02-21 11:44 | ED.GENADUL1 ---
HPI HPI - General Adult General Chief complaint: Dizziness Stated complaint: SHORTNESS OF BREATH, CHEST HEAVINESS, UPPER ABD PA Time Seen by Provider: 02/21/25 11:27 Source: patient Mode of arrival: walk-in History of Present Illness HPI narrative: 79-year-old female presents to the emergency department for a chief complaint of abdominal pain. This has been intermittent for several weeks. It started up again today and she was at latter-day. She was standing and her legs became weak. It does not seem that it any point she had chest pain and there was no injury. She did not have syncope. She has seen her family doctor for this issue but I am told that no tests were run. The pain is all over her abdomen. No vomiting or diarrhea or constipation or fever. Related Data Home Medications ?Medication ?Instructions ?Recorded ?Confirmed alprazolam 0.5 mg tablet 0.5 mg PO TID PRN anxiety 02/21/25 02/21/25 aspirin 81 mg tablet,delayed 81 mg PO DAILY 02/21/25 02/21/25 release buspirone 5 mg tablet 5 mg PO BID 02/21/25 02/21/25 carvedilol 6.25 mg tablet 6.25 mg PO Q12H 02/21/25 02/21/25 ezetimibe 10 mg tablet 10 mg PO DAILY 02/21/25 02/21/25 famotidine 20 mg tablet 20 mg PO Q12H 02/21/25 02/21/25 levothyroxine 88 mcg tablet 88 mcg PO .ACB 02/21/25 02/21/25 mirtazapine 15 mg tablet 15 mg PO .QHS 02/21/25 02/21/25 omeprazole 40 mg capsule,delayed 40 mg PO DAILY 02/21/25 02/21/25 release potassium chloride 10 mEq 10 meq PO DAILY 02/21/25 02/21/25 capsule,extended release sacubitril 24 mg-valsartan 26 mg 1 tab PO BID 02/21/25 02/21/25 tablet (Entresto) Previous Rx's ?Medication ?Instructions ?Recorded bisacodyl 5 mg tablet,delayed 5 mg PO DAILY PRN constipation #10 01/29/25 release (Dulcolax (bisacodyl)) tabs Allergies Allergy/AdvReac Type Severity Reaction Status Date / Time hydrochlorothiazide Allergy Unknown Verified 02/21/25 11:29 rosuvastatin (From Crestor) Allergy Unknown Verified 02/21/25 11:29 Sulfa (Sulfonamide Allergy Hives Verified 02/21/25 11:29 Antibiotics) tramadol AdvReac Nausea Verified 02/21/25 11:29 Review of Systems ROS Narrative A ten point review of systems is negative except as noted above. [facility] Medical History (Updated 02/21/25 @ 13:49 by Burton Stephenson MD) Stroke ?I63.9 - Cerebral infarction, unspecified (ICD-10) Social History Little interest or pleasure in doing things: not at all Feeling down, depressed, or hopeless: not at all Exam Narrative Exam Narrative: Nurses note and vital signs reviewed and patient is not hypoxic. General: The patient appears well and in no apparent distress. Patient is resting comfortably on cart. Skin: Warm, dry, no pallor noted. There is no rash noted. Head: Normocephalic, atraumatic Eye: Normal conjunctiva, no drainage Ears, Nose, Mouth, and Throat: oral mucosa is moist. Nares patent. Cardiovascular: Regular Rate and Rhythm Respiratory: Patient is in no distress, no accessory muscle use, lungs are clear to auscultation, no wheezing, rales or rhonchi Back: non-tender GI: Soft and nondistended. She seems to have diffuse tenderness. Musculoskeletal: The patient has no evidence of calf tenderness, no pitting edema, symmetrical pulses noted bilaterally Neurological: Awake and alert. Psychiatric: Cooperative Constitutional Vital Signs, click to edit/add: Last Vital Signs Temp 98.4 F 02/21/25 11:25 Pulse 77 02/21/25 12:00 Resp 28 H 02/21/25 12:00 BP 137/70 02/21/25 11:34 Pulse Ox 100 02/21/25 12:00 O2 Del Method Room Air 02/21/25 11:25 Course Vital Signs Vital signs: Vital Signs Temperature 98.4 F 02/21/25 11:25 Pulse Rate 82 02/21/25 11:25 Respiratory Rate 20 02/21/25 11:25 Blood Pressure 137/70 02/21/25 11:25 Pulse Oximetry 99 02/21/25 11:25 Oxygen Delivery Method Room Air 02/21/25 11:25 Temperature 98.4 F 02/21/25 11:25 Pulse Rate 77 02/21/25 12:00 Respiratory Rate 28 H 02/21/25 12:00 Blood Pressure 137/70 02/21/25 11:34 Pulse Oximetry 100 02/21/25 12:00 Oxygen Delivery Method Room Air 02/21/25 11:25 Medical Decision Making MDM Narrative Medical decision making narrative: Her workup including CT of the abdomen is negative. The patient thinks it might be her nerves. Her of 63 years recently and she is lonely. She is staying with her [id number]. She is released and has follow-up already arranged for her with her physician. He recently prescribed her Remeron. Treatment diagnosis and follow-up were discussed with the patient Differential Diagnosis Differential Diagnosis: Diverticulitis, colitis, pancreatitis, hepatitis, anxiety Lab Data Lab results reviewed: Yes I reviewed the patient's lab results Labs: Lab Results 02/21/25 02/21/25 Range/Units 11:45 12:43 WBC 5.3 (4.0-11.0) 10^3/uL RBC 4.01 L (4.20-5.40) 10^6/uL Hgb 11.4 L (12.0-16.0) g/dL Hct 35.0 L (36.0-48.0) % MCV 87.3 (81.0-99.0) fL MCH 28.4 (26.7-34.0) pg MCHC 32.6 (29.9-35.2) g/dL RDW 13.5 (11.0-15.0) % Plt Count 168 (150-450) 10^3/uL MPV 10.3 (9.5-13.5) fL Neut % (Auto) 65.7 (43.0-75.0) % Lymph % (Auto) 22.8 (20.5-60.0) % [place]yer % (Auto) 9.2 (1.7-12.0) % Eos % (Auto) 1.9 (0.9-7.0) % Baso % (Auto) 0.2 (0.2-2.0) % Neut # (Auto) 3.5 (1.4-6.5) 10^3/uL Lymph # (Auto) 1.2 (1.2-3.8) 10^3/uL [place]yer # (Auto) 0.5 (0.3-0.8) 10^3/uL Eos # (Auto) 0.1 (0.0-0.7) 10^3/uL Baso # (Auto) 0.0 (0.0-0.1) 10^3/uL Abs Immat Gran (auto) 0.01 (0.00-0.03) 10^3/uL Imm/Tot Granulo (auto) 0.2 (0.0-0.5) % Sodium 141 (136-145) mmol/L Potassium 4.2 (3.5-5.1) mmol/L Chloride 106 (98-107) mmol/L Carbon Dioxide 25.4 (21.0-32.0) mmol/L Anion Gap 13.8 BUN 11.0 (7.0-18.0) mg/dL Creatinine 0.73 (0.55-1.02) mg/dL Est GFR ( Amer) >60 (>=60 mL/min/1.73m^2) Est GFR (Non-Af Amer) >60 (>=60 mL/min/1.73m^2) BUN/Creatinine Ratio 15.1 Glucose 122 H (74-106) mg/dL Calcium 9.0 (8.5-10.1) mg/dL Total Bilirubin 0.6 (0.2-1.0) mg/dL Direct Bilirubin <0.1 (0.0-0.2) mg/dL AST 36 (15-37) U/L ALT 24 (14-59) U/L Alkaline Phosphatase 61 (46-116) U/L Troponin I High Sens 9.1 (4.0-51.3) pg/mL Total Protein 7.4 (6.4-8.2) g/dL Albumin 3.4 (3.4-5.0) g/dL Globulin 4.0 g/dL Albumin/Globulin Ratio 0.9 Amylase 71 (25-115) U/L Lipase 81.0 H (16.0-77.0) U/L Urine Color Lt. yellow (YELLOW) Urine Clarity Clear (CLEAR) Urine pH 6.5 (5.0-9.0) Ur Specific [place] <=1.005 A (1.005-1.025) Urine Protein Negative (NEG/TRACE) mg/dL Urine Glucose (UA) Negative (NEGATIVE) mg/dL Urine Ketones Negative (NEGATIVE) mg/dL Urine Occult Blood Negative (NEGATIVE) Urine Nitrite Negative (NEGATIVE) Urine Bilirubin Negative (NEGATIVE) Urine Urobilinogen 0.2 (0.2-1.0) EU/dL Ur Leukocyte Esterase Negative (NEGATIVE) Urine RBC 0-2 (0-2) #/HPF Urine WBC 0-2 A (NONE SEEN) #/HPF Ur Squamous Epith Cells Rare (NONE/RARE) #/LPF Urine Crystals None seen (None Seen) #/HPF Urine Bacteria Trace A (NONE SEEN) #/HPF Urine Casts None seen (NONE SEEN) #/LPF Urine Mucus None seen (NONE SEEN) Imaging Data CT scan - abdomen: Radiologist's impression: No acute abnormality within the abdomen pelvis Chest x-ray: Clear lungs ECG Data Attestation: I personally reviewed and interpreted this ECG as follows: (EKG on my interpretation shows sinus rhythm with rate of 75 and 2 PVCs) Discharge Plan Discharge Chief Complaint: Dizziness Clinical Impression: Abdominal pain Patient Disposition: Home, Self-Care Time of Disposition Decision: 13:48 Condition: Good Mode of Transportation: Private Vehicle Prescriptions / Home Meds: No Action bisacodyl [Dulcolax (bisacodyl)] 5 mg tablet,delayed release (DR/EC) 5 mg PO DAILY PRN (Reason: constipation) Qty: 10 0RF alprazolam 0.5 mg tablet 0.5 mg PO TID PRN (Reason: anxiety) aspirin 81 mg tablet,delayed release (DR/EC) 81 mg PO DAILY buspirone 5 mg tablet 5 mg PO BID ezetimibe 10 mg tablet 10 mg PO DAILY famotidine 20 mg tablet 20 mg PO Q12H levothyroxine 88 mcg tablet 88 mcg PO .ACB omeprazole 40 mg capsule,delayed release(DR/EC) 40 mg PO DAILY potassium chloride 10 mEq capsule, extended release 10 meq PO DAILY Entresto 24-26 mg tablet 1 tab PO BID carvedilol 6.25 mg tablet 6.25 mg PO Q12H mirtazapine 15 mg tablet 15 mg PO .QHS Print Language: Tristanian Instructions: Abdominal Pain (ED) Referrals: Alfonzo Sherman [Primary Care Provider] - 1 week
[2025-02-21 12:00] VITALS: PULSE 77; O2SAT 100
[2025-02-21 12:06] LABS: Basophils Percent Auto 0.2 % (0.2-2.0); Eosinophils Absolute Auto 0.1 10^3/uL (0.0-0.7); Eosinophils Percent Auto 1.9 % (0.9-7.0); Hemoglobin 11.4 g/dL (12.0-16.0); Immature Granulocytes Abs Auto 0.01 10^3/uL (0.00-0.03); Immature Granulocytes Pct Auto 0.2 % (0.0-0.5); Lymphocytes Absolute Auto 1.2 10^3/uL (1.2-3.8); Lymphocytes Percent Auto 22.8 % (20.5-60.0); Mean Corpuscular HGB Conc 32.6 g/dL (29.9-35.2); Mean Corpuscular Hemoglobin 28.4 pg (26.7-34.0); Mean Corpuscular Volume 87.3 fL (81.0-99.0); Mean Platelet Volume 10.3 fL (9.5-13.5); Monocytes Absolute Auto 0.5 10^3/uL (0.3-0.8); Monocytes Percent Auto 9.2 % (1.7-12.0); Neutrophils Absolute Auto 3.5 10^3/uL (1.4-6.5); Neutrophils Percent Auto 65.7 % (43.0-75.0); Platelet Count 168 10^3/uL (150-450); Red Blood Count 4.01 10^6/uL (4.20-5.40); Red Cell Distribution Width 13.5 % (11.0-15.0); White Blood Count 5.3 10^3/uL (4.0-11.0)
[2025-02-21 12:23] LABS: Anion Gap 13.8
[2025-02-21 12:25] LABS: Alanine Aminotransferase 24 U/L (14-59); Albumin Globulin Ratio 0.9; Albumin Level 3.4 g/dL (3.4-5.0); Alkaline Phosphatase 61 U/L (46-116); Amylase 71 U/L (25-115); Aspartate Amino Transferase 36 U/L (15-37); BUN Creatinine Ratio 15.1; Bilirubin Direct <0.1 mg/dL (0.0-0.2); Bilirubin Total 0.6 mg/dL (0.2-1.0); Carbon Dioxide 25.4 mmol/L (21.0-32.0); Chloride 106 mmol/L (98-107); Estimated GFR (African America >60 (>=60 mL/min/1.73m^2); Estimated GFR (Non-African Ame >60 (>=60 mL/min/1.73m^2); Glucose 122 mg/dL (74-106); Potassium 4.2 mmol/L (3.5-5.1); Sodium 141 mmol/L (136-145); Total Protein 7.4 g/dL (6.4-8.2); Troponin I High Sensitivity 9.1 pg/mL (4.0-51.3)
[2025-02-21 12:51] LABS: Bilirubin Urine NEGATIVE (NEGATIVE); Blood Urine NEGATIVE (NEGATIVE); Clarity Urine CLEAR (CLEAR); Color Urine LT. YELLOW (YELLOW); Glucose Urine UA NEGATIVE (NEGATIVE); Ketones Urine NEGATIVE (NEGATIVE); Leukocyte Esterase Urine NEGATIVE (NEGATIVE); Nitrite Urine NEGATIVE (NEGATIVE); Protein Urine NEGATIVE (NEG/TRACE); Specific Gravity Urine <=1.005 (1.005-1.025); Urobilinogen Urine 0.2 EU/dL (0.2-1.0); pH Urine 6.5 (5.0-9.0)
[2025-02-21 13:00] LABS: Bacteria Urine TRACE #/HPF (NONE SEEN); Mucus Urine NONE SEEN (NONE SEEN); RBC Urine 0-2 #/HPF (0-2); WBC Urine 0-2 #/HPF (NONE SEEN)
[2025-02-21 13:01] LABS: Cast Seen? NONE SEEN #/LPF (NONE SEEN); Crystals Seen? None Seen #/HPF (None Seen); Squamous Epithelial Cell Urine RARE #/LPF (NONE/RARE)
== END 2025-02-21 13:57 | disposition home or self-care (01) ==
PROVIDERS: Emergency Provider Emergency Medicine; PCP Family Medicine
DX: R10.84 Generalized abdominal pain (principal); R53.1 Weakness
CPT/HCPCS: 36415; 71045; 74177; 80048; 80076; 81001; 82150; 83690; 84484; 85025; 93005; 99285; Q9967